=== PATIENT | female | born 1930 | race Caucasian/White ===

== ENCOUNTER 2016-06-27 08:15 | Emergency (ER) | payer MEDICARE, BC ==
[~2016-06-27] VITALS: Ht 165.1 cm; Wt 60.0 kg
[~2016-06-27 08:15] MED LIST: ALPH0.1S EACH EYE; AMLO5TAB22 PO; CENTTAB9 PO; CINN500T PO; DORZO2%O EACH EYE; DOXY100T PO; FLAX1200 PO; GLUC500C3 PO; GLUCTAB PO; LUTE20CA PO; MISC1TAB9 PO; RISP0.5T2 PO; ROSU5 PO; VALS1TAB47 PO; VITA-13 PO; VITA100017 PO; VITA400C70 PO; VITATAB11 PO
[2016-06-27] MEDS ORDERED: TETANUS/DIPHTHERIA TOXOID ADULT 0.5 ML VIAL IM ONE (08:30)
[2016-06-27 08:34] VITALS: BP 176/91; PULSE 91; RESP 18; TEMP 98.6; O2SAT 99
[2016-06-27 08:36] VITALS: O2SAT 97
[2016-06-27] MEDS ORDERED: METF500T PO (08:46)
[2016-06-27] MEDS ORDERED: ALPH0.1S EACH EYE (08:46)
[2016-06-27] MEDS ORDERED: LEVO25TA4 PO (08:46)
[2016-06-27] MEDS ORDERED: ROSU10 PO (08:46)
[2016-06-27] MEDS ORDERED: AMLO5TAB2 PO (08:46)
[2016-06-27] MEDS ORDERED: RISP0.5T2 PO (08:46)
[2016-06-27] MEDS ORDERED: VALS1TAB64 PO (08:46)
[2016-06-27] MEDS ORDERED: DORZ2SOL EACH EYE (08:46)
[2016-06-27] MEDS ORDERED: REST0.05 EACH EYE (08:46)
[2016-06-27] MEDS ORDERED: OXYB10TA PO (08:46)
--- NOTE | 2016-06-27 08:52 | PD ---
HPI Chief Complaint: Fall Time Seen by Provider: 08:25 Travel History International Travel<30 days: No Contact w/Intl Traveler<30days: No Traveled to known affect area: No History of Present Illness HPI 85-year-old female here after fall. Patient has history of dementia. Daughter is here and provides additional history. Patient typically sleeps in a recliner , got up this morning and tripped over the ottoman and did a pirouette", falling and hitting her head on the left side. No LOC. Patient denies any headache, nausea, vomiting. No neck or back pain. She has been ambulatory without any difficulty since the fall. She is not anticoagulated. Daughter noted a significant amount of blood. Daughter does not live with patient, but has cameras in her house. She was able to watch the fall and agrees with the above historical events. PFSH Past Medical History Arthritis: Yes Anxiety: No Depression: No Heart Rhythm Problems: No Cancer: No Cardiac Catheterization: No Cardiovascular Problems: No High Cholesterol: Yes Chest Pain: Yes Congestive Heart Failure: No Cerebrovascular Accident: No Diabetes: Yes Diminished Hearing: Yes (HEARING AIDS-BILAT) Endocrine: No Glaucoma: Yes Genitourinary: Yes (bladder stone) Hepatitis: No Hiatal Hernia: No Hypertension: Yes Immune Disorder: No Musculoskeletal: Yes (arthritis) Neurologic: No Psychiatric: Yes (forgetful) Reproductive: No Respiratory: No Migraines: No Seizures: No Thyroid Disease: No Tetanus Vaccination: > 5 Years ?: Not Dilation and Curettage (D&C): Yes Past Surgical History Abdominal Surgery: Yes (APPY) AICD: No Appendectomy: Yes Body Medical Devices: oral hardware due to implants Cardiac Surgery: No Coronary Artery Bypass Graft: No Ear Surgery: No Endocrine Surgery: No Eye Surgery: Yes (Detached Retina) Genitourinary Surgery: No Gynecologic Surgery: No Joint Replacement: Yes (torey PARTIAL KNEE) Oral Surgery: No Pacemaker: No Thoracic Surgery: No Tonsillectomy: Yes Social History Alcohol Use: No Tobacco Use: No Substance Use: No Allergies-Medications (Allergen,Severity, Reaction): Coded Allergies: Hydrocodone (Verified Allergy, Severe, Nausea/Vomiting, 01/15/16) Reported Meds & Prescriptions Reported Meds & Active Scripts Active Reported Alphagan P Opth Drops (Brimonidine Tartrate) 0.1% Soln 1 Drop EACH EYE Q8HR Crestor (Rosuvastatin Calcium) 10 Mg Tab 10 Mg PO DAILY Restasis Opth Drops (Cyclosporine Opth Drops) 0.05% Emul 1 Drop EACH EYE BID Dorzolamide Opth Drops (Dorzolamide HCl) 2% Soln 1 Drop EACH EYE Risperidone 0.5 Mg Tab 0.5 Mg PO BID Amlodipine (Amlodipine Besylate) 5 Mg Tab 5 Mg PO DAILY Metformin (Metformin HCl) 500 Mg Tab 500 Mg PO BIDPC With meals Oxybutynin ER 24 HR (Oxybutynin Chloride) 10 Mg Tab 10 Mg PO DAILY Valsartan 80 Mg Tab 80 Mg PO DAILY Levothyroxine (Levothyroxine Sodium) 25 Mcg Tab 25 Mcg PO DAILY Glucophage XR 24 HR (Metformin HCl) 500 Mg Tab 500 Mg PO BID Review of Systems Except as stated in HPI: all other systems reviewed are Neg Physical Exam Narrative GENERAL: Elderly female in no acute distress SKIN: Warm and dry. HEAD: Dry blood with matted hair, contusion to the left occipital parietal region. No obvious laceration, but I suspect it is there. Will require combing through her matted hair to find this. Normocephalic. EYES: Pupils equal and round. No scleral icterus. No injection or drainage. ENT: No nasal bleeding or discharge. Mucous membranes pink and moist. TMs clear bilaterally. NECK: Supple without midline tenderness to palpation. CARDIOVASCULAR: Regular rate and rhythm. RESPIRATORY: No accessory muscle use. GASTROINTESTINAL: Abdomen soft, non-tender, nondistended. MUSCULOSKELETAL: No midline tenderness to palpation of the thoracic or lumbar spine. Pelvis is stable to AP and lateral compression. Moves all extremity's normally without obvious deformity. NEUROLOGICAL: Awake and alert 3 but confused about historical questioning.. Answers questions and follows commands appropriately. No obvious cranial nerve deficits. Motor grossly within normal limits. Normal speech. PSYCHIATRIC: Appropriate mood and affect; insight and judgment normal. Data Data Last Documented VS Vital Signs Date Time Temp Pulse Resp B/P Pulse Ox O2 Delivery O2 Flow Rate FiO2 06/27/16 08:39 18 98 06/27/16 08:36 Nasal Cannula 2 06/27/16 08:34 98.6 91 176/[address] Brain W/O Iv Contrast(Rout) (06/27/16 08:30) Ecg Monitoring (06/27/16 08:30) Oximetry (06/27/16 08:30) Tetanus/Diphtheria Tox Adult (Tetanus/Di (06/27/16 08:30) MDM Medical Decision Making Medical Screen Exam Complete: Yes Emergency Medical Condition: Yes Medical Record Reviewed: Yes Differential Diagnosis 85-year-old female here with complaint of fall. Differential includes mechanical fall, closed head injury, skull fracture, ICH, scalp laceration. History is not consistent with syncope. Narrative Course Tetanus immunization was updated. CT of the brain showed negative. The dried blood on the scalp, hair was combed through revealing laceration. This was repaired by our mid-level, please see procedure note. Diagnosis Primary Impression: Scalp laceration Qualified Code: S01.01XA - Scalp laceration, initial encounter Additional Impressions: Closed head injury Qualified Code: S09.90XA - Closed head injury, initial encounter Fall Qualified Code: W19.XXXA - Fall, initial encounter Referrals: Primary Care Physician 1 week Additional Instructions: Staple removal in 7-10 days. Med/Other Pt SpecificInfo: No Change to Meds Disposition: 01 DISCHARGE HOME Condition: Stable Montserrat Bourgeois MD Jun 27, 2016 08:52
--- NOTE | 2016-06-27 08:59 | RADRPT ---
EXAM DATE/TIME: 06/27/2016 08:47 [facility] COMPARISON: CT BRAIN W/O CONTRAST, January 01, 2014, 15:54. INDICATIONS : Patient fell and hit left posterior head RADIATION DOSE: 33.76 CTDIvol (mGy) MEDICAL HISTORY : Hypertension. Diabetes mellitus type 1. SURGICAL HISTORY : None. ENCOUNTER: Initial ACUITY: 1 day PAIN SCALE: 0/10 LOCATION: Left occipital TECHNIQUE: Multiple contiguous axial images were obtained of the head. Using automated exposure control and adj ustment of the mA and/or kV according to patient size, radiation dose was kept as low as reasonably a chievable to obtain optimal diagnostic quality images. FINDINGS: There is diffuse atrophy and reidentified is a remote left thalamic lacunar infarct. Patchy white mat ter disease is again seen in the periventricular white matter. No signs of acute infarct, hemorrhage or mass. There are no fractures. CONCLUSION: No significant change has occurred. Jignesh Lam MD on June 27, 2016 at 8:57 Board Certified Radiologist. This report was verified electronically.
--- NOTE | 2016-06-27 09:58 | PD ---
Physical Exam Time Seen by Provider: 09:25 Narrative I was asked by Dr. Bourgeois to repair a laceration on this patient, please see her note for further details. Data Data Last Documented VS Vital Signs Date Time Temp Pulse Resp B/P Pulse Ox O2 Delivery O2 Flow Rate FiO2 06/27/16 08:39 18 98 06/27/16 08:36 Nasal Cannula 2 06/27/16 08:34 98.6 91 176/[address] Brain W/O Iv Contrast(Rout) (06/27/16 08:30) Ecg Monitoring (06/27/16 08:30) Oximetry (06/27/16 08:30) Tetanus/Diphtheria Tox Adult (Tetanus/Di (06/27/16 08:30) MDM Medical Record Reviewed: Yes Supervised Visit with GARIMA: Yes Procedures Procedure Narrative LACERATION LOCATION: Top of scalp LENGTH: 2 cm NUMBER OF STITCHES/JOSSIE: 2 jossie REPAIR: The area of the laceration was prepped with Betadine and sterilely draped. The wound was copiously irrigated and explored without evidence of foreign body, tendon injury or neurovascular injury. The wound was closed using staple gun. This was a single layer repair. A sterile dressing was applied. The patient was advised to keep the dressing clean and dry. Patient tolerated the procedure well. Diagnosis Primary Impression: Scalp laceration Qualified Code: S01.01XA - Scalp laceration, initial encounter Additional Impressions: Closed head injury Qualified Code: S09.90XA - Closed head injury, initial encounter Fall Qualified Code: W19.XXXA - Fall, initial encounter Referrals: Primary Care Physician 1 week Additional Instruction: Staple removal in 7-10 days. Disposition: 01 DISCHARGE HOME Condition: Stable Vane Chu Jun 27, 2016 09:58
== END 2016-06-27 10:30 | disposition home or self-care (01) ==
LOC: NEPC 08:15
DX: S01.01XA Laceration without foreign body of scalp, initial encounter (principal); W01.0XXA Fall on same level from slipping, tripping and stumbling without subsequent striking against object, initial encounter; Z23 Encounter for immunization
CPT/HCPCS: 12001; 70450; 90471; 90714

== ENCOUNTER 2017-01-26 16:14 | Observation (INO) | payer MEDICARE, BC ==
[~2017-01-26] VITALS: Ht 167.6 cm; Wt 80.0 kg
[~2017-01-26 16:14] MED LIST changes: +AMLO5TAB2 PO; -AMLO5TAB22 PO; -CENTTAB9 PO; -CINN500T PO; +DORZ2SOL EACH EYE; -DORZO2%O EACH EYE; -DOXY100T PO; -FLAX1200 PO; -GLUC500C3 PO; +LEVO25TA4 PO; -LUTE20CA PO; +METF500T PO; -MISC1TAB9 PO; +OXYB10TA PO; +REST0.05 EACH EYE; +ROSU10 PO; -ROSU5 PO; -VALS1TAB47 PO; +VALS1TAB64 PO; -VITA-13 PO; -VITA100017 PO; -VITA400C70 PO; -VITATAB11 PO
--- NOTE | 2017-01-26 16:27 | PD ---
HPI Chief Complaint: right-sided weakness Time Seen by Provider: 16:26 Travel History International Travel<30 days: No Contact w/Intl Traveler<30days: No Traveled to known affect area: No History of Present Illness HPI 86-year-old female was brought to the emergency room by EMS for progressive right-sided weakness for 2-3 days. Her daughter is here with her who confirmed that story. She has been having difficulty walking or holding objects. Patient is otherwise awake and in no obvious distress. Vital signs were relatively stable. No past history of stroke. No history of fall. Patient's lower extremity is weaker than the upper extremity. PFSH Past Medical History Narrative Medical List of her past medical, surgical, social and family history was reviewed from the nursing note. Arthritis: Yes Anxiety: No Depression: No Heart Rhythm Problems: No Cancer: No Cardiac Catheterization: No Cardiovascular Problems: No High Cholesterol: Yes Chest Pain: Yes Congestive Heart Failure: No Cerebrovascular Accident: No Diabetes: Yes Diminished Hearing: Yes (HEARING AIDS-BILAT) Endocrine: No Glaucoma: Yes Genitourinary: Yes (bladder stone) Hepatitis: No Hiatal Hernia: No Hypertension: Yes Immune Disorder: No Musculoskeletal: Yes (arthritis) Neurologic: No Psychiatric: Yes (forgetful) Reproductive: No Respiratory: No Migraines: No Seizures: No Thyroid Disease: No Dilation and Curettage (D&C): Yes Past Surgical History Abdominal Surgery: Yes (APPY) AICD: No Appendectomy: Yes Body Medical Devices: oral hardware due to implants Cardiac Surgery: No Coronary Artery Bypass Graft: No Ear Surgery: No Endocrine Surgery: No Eye Surgery: Yes (Detached Retina) Genitourinary Surgery: No Gynecologic Surgery: No Joint Replacement: Yes (torey PARTIAL KNEE) Oral Surgery: No Pacemaker: No Thoracic Surgery: No Tonsillectomy: Yes Social History Alcohol Use: No Tobacco Use: No Substance Use: No Allergies-Medications (Allergen,Severity, Reaction): Coded Allergies: Hydrocodone (Verified Allergy, Severe, Nausea/Vomiting, 01/26/17) Comments List of her allergies reviewed from the nursing note. Reported Meds & Prescriptions Reported Meds & Active Scripts Active Reported Methenamine Hippurate 1 Gm Tab 500 Mg PO BID Alphagan P Opth Drops (Brimonidine Tartrate) 0.1% Soln 1 Drop EACH EYE Q8HR Crestor (Rosuvastatin Calcium) 10 Mg Tab 10 Mg PO DAILY Restasis Opth 0.05% (Cyclosporine Opth 0.05%) 0.05% Emul 1 Drop EACH EYE BID Dorzolamide Opth Drops (Dorzolamide HCl) 2% Soln 1 Drop EACH EYE Risperidone 0.5 Mg Tab 0.5 Mg PO BID Amlodipine (Amlodipine Besylate) 5 Mg Tab 5 Mg PO DAILY Metformin (Metformin HCl) 500 Mg Tab 500 Mg PO BIDPC With meals Oxybutynin ER 24 HR (Oxybutynin Chloride) 10 Mg Tab 10 Mg PO DAILY Valsartan 80 Mg Tab 80 Mg PO DAILY Levothyroxine (Levothyroxine Sodium) 25 Mcg Tab 25 Mcg PO DAILY Narrative Medication List of her home medications reviewed from the nursing note. Review of Systems Except as stated in HPI: all other systems reviewed are Neg Physical Exam Narrative GENERAL: Awake, alert, elderly, frail SKIN: Focused skin assessment warm/dry. HEAD: Atraumatic. Normocephalic. EYES: Pupils equal and round. No scleral icterus. No injection or drainage. ENT: No nasal bleeding or discharge. Mucous membranes pink and moist. NECK: Trachea midline. No JVD. CARDIOVASCULAR: Regular rate and rhythm. No murmur appreciated. RESPIRATORY: No accessory muscle use. Clear to auscultation. Breath sounds equal bilaterally. GASTROINTESTINAL: Abdomen soft, non-tender, nondistended. Hepatic and splenic margins not palpable. MUSCULOSKELETAL: No obvious deformities. No clubbing. No cyanosis. No edema. NEUROLOGICAL: Awake and alert. Significantly diminished right upper and lower extremity strength. Right upper is 3 out of 5 and right lower a is 2 out of 5. Ataxia of the right upper extremity. PSYCHIATRIC: Appropriate mood and affect; insight and judgment normal. Data Data Last Documented VS Vital Signs Date Time Temp Pulse Resp B/P Pulse Ox O2 Delivery O2 Flow Rate FiO2 01/26/17 20:36 89 18 159/73 97 Nasal Cannula 2 01/26/17 16:30 98.8 Orders Electrocardiogram (01/26/17 16:51) Prothrombin Time / Inr (Pt) (01/26/17 16:51) Complete Blood Count With Diff (01/26/17 16:51) Basic Metabolic Panel (Bmp) (01/26/17 16:51) Troponin I (01/26/17 16:51) Urinalysis - C+S If Indicated (01/26/17 16:51) Ct Brain W/O Iv Contrast(Rout) (01/26/17 16:51) Chest, Single Ap (01/26/17 16:51) Ecg Monitoring (01/26/17 16:51) Iv Access Insert/Monitor (01/26/17 16:51) Oximetry (01/26/17 16:51) Sodium Chloride 0.9% Flush (Ns Flush) (01/26/17 17:00) Urine Culture (01/26/17 19:25) Admit Order (Ed Use Only) (01/26/17 21:17) Labs Laboratory Tests Test 01/26/17 01/26/17 18:00 19:25 Prothrombin Time 11.4 SEC Prothromb Time International 1.0 RATIO Ratio Sodium Level 138 MEQ/L Potassium Level 4.1 MEQ/L Chloride Level 105 MEQ/L Carbon Dioxide Level 19.3 MEQ/L Anion Gap 14 MEQ/L Blood Urea Nitrogen 34 MG/DL Creatinine 1.05 MG/DL Estimat Glomerular Filtration 49 ML/MIN Rate Random Glucose 187 MG/DL Calcium Level 10.6 MG/DL Troponin I LESS THAN 0.02 NG/ML White Blood Count 11.9 TH/MM3 Red Blood Count 5.01 MIL/MM3 Hemoglobin 15.2 GM/DL Hematocrit 44.5 % Mean Corpuscular Volume 88.9 FL Mean Corpuscular Hemoglobin 30.3 PG Mean Corpuscular Hemoglobin 34.1 % Concent Red Cell Distribution Width 14.2 % Platelet Count 171 TH/MM3 Mean Platelet Volume 9.3 FL Neutrophils (%) (Auto) 59.8 % Lymphocytes (%) (Auto) 29.3 % Monocytes (%) (Auto) 8.6 % Eosinophils (%) (Auto) 1.4 % Basophils (%) (Auto) 0.9 % Neutrophils # (Auto) 7.1 TH/MM3 Lymphocytes # (Auto) 3.5 TH/MM3 Monocytes # (Auto) 1.0 TH/MM3 Eosinophils # (Auto) 0.2 TH/MM3 Basophils # (Auto) 0.1 TH/MM3 CBC Comment DIFF FINAL Differential Comment Urine Color YELLOW Urine Turbidity CLEAR Urine pH 5.0 Urine Specific [place] 1.019 Urine Protein 30 mg/dL Urine Glucose (UA) NEG mg/dL Urine Ketones NEG mg/dL Urine Occult Blood NEG Urine Nitrite NEG Urine Bilirubin NEG Urine Urobilinogen LESS THAN 2.0 MG/DL Urine Leukocyte Esterase NEG Urine RBC LESS THAN 1 /hpf Urine WBC 5 /hpf Urine Squamous Epithelial 1 /hpf Cells Microscopic Urinalysis Comment CATH-CULTURE IND MDM Medical Decision Making Medical Screen Exam Complete: Yes Emergency Medical Condition: Yes Medical Record Reviewed: Yes Interpretation(s) Twelve-lead EKG was reviewed by me. Normal sinus rhythm, left axis deviation, old anterior and inferior CT. LVH by voltage criteria. Heart rate of 87 bpm Differential Diagnosis CVA, intracranial mass, intracranial bleed Narrative Course 7:05 PM blood test results of back. Patient has some dehydration. CT of the head was looked at by me and I did not see any obvious head bleed. Awaiting for the read. Patient needs to be admitted for this new weakness. Awaiting for the hospitalist to call back. Procedures EKG Prior to Arrival: No Diagnosis Primary Impression: Right hemiparesis Additional Impression: CVA (cerebral vascular accident) Qualified Code: I63.9 - Cerebrovascular accident (CVA), unspecified mechanism Admitting Information Admitting Physician Requests: Admit Scripts Aspirin (Aspirin Low Strength)81 Mg [id number] Mg PO DAILY #30 EA Prov:Molly Iglesias 01/28/17 Gemma Dueñas MD Jan 26, 2017 16:26
[2017-01-26 16:30] VITALS: BP 171/77; PULSE 83; RESP 17; TEMP 98.8; O2SAT 99
[2017-01-26] MEDS ORDERED: METH1TAB2 PO (16:41)
[2017-01-26] MEDS ORDERED: SODIUM CHLORIDE 0.9% FLUSH 10 ML FLUSH IVF PRN (17:00)
--- NOTE | 2017-01-26 17:36 | RADRPT ---
EXAM DATE/TIME: 01/26/2017 17:04 [facility] COMPARISON: CHEST SINGLE AP, September 24, 2015, 12:08. INDICATIONS : Patient is short of breath. MEDICAL HISTORY : Hypertension. Diabetes mellitus type 1. SURGICAL HISTORY : None. ENCOUNTER: Initial ACUITY: 1 day PAIN SCORE: 0/10 LOCATION: Bilateral chest FINDINGS: A single view of the chest demonstrates the lungs to be symmetrically aerated without evidence of mas s, infiltrate or effusion. A small granuloma within the left midlung. The cardiomediastinal contours are unremarkable. Osseous structures are intact. CONCLUSION: No acute disease. Oscar Knutson Jr., MD on January 26, 2017 at 17:34 Board Certified Radiologist. This report was verified electronically.
[2017-01-26 18:19] LABS: AUTOMATED NEUTROPHIL # 7.1 TH/MM3 (1.8-7.7); BASOPHIL # 0.1 TH/MM3 (0-0.2); BASOPHIL % 0.9 % (0.0-2.0); EOSINOPHIL # 0.2 TH/MM3 (0-0.4); EOSINOPHIL % 1.4 % (0.0-4.0); HEMATOCRIT 44.5 % (35.0-46.0); HEMO FLAGS DIFF FINAL; LYMPH % 29.3 % (9.0-44.0); LYMPHOCYTE # 3.5 TH/MM3 (1.0-4.8); MEAN CELL VOLUME 88.9 FL (80.0-100.0); MEAN CORPUSCULAR HEMOGLOBIN 30.3 PG (27.0-34.0); MEAN CORPUSCULAR HGB CONC 34.1 % (32.0-36.0); MONO % 8.6 % (0.0-8.0); NEUT % 59.8 % (16.0-70.0); PLATELET COUNT 171 TH/MM3 (150-450); RED BLOOD COUNT 5.01 MIL/MM3 (4.00-5.30); RED CELL DISTRIBUTION WIDTH 14.2 % (11.6-17.2); WHITE BLOOD COUNT 11.9 TH/MM3 (4.0-11.0)
[2017-01-26 18:32] VITALS: BP 173/74; PULSE 81; RESP 19; O2SAT 99
[2017-01-26 18:37] LABS: ANION GAP 14 MEQ/L (5-15); BICARBONATE 19.3 MEQ/L (21.0-32.0); BLOOD UREA NITROGEN 34 MG/DL (7-18); CHLORIDE 105 MEQ/L (98-107); GLOMERULAR FILTRATION RATE 49 ML/MIN (>89); POTASSIUM 4.1 MEQ/L (3.5-5.1); PROTHROMBIN TIME - PATIENT 11.4 SEC (9.8-11.6); SODIUM (NA) 138 MEQ/L (136-145)
--- NOTE | 2017-01-26 19:39 | RADRPT ---
EXAM DATE/TIME: 01/26/2017 18:40 [facility] COMPARISON: CT BRAIN W/O CONTRAST, June 27, 2016, 8:47. INDICATIONS : Weakness on right side for three days RADIATION DOSE: 32.37 CTDIvol (mGy) MEDICAL HISTORY : Hypertension. Bladder stone SURGICAL HISTORY : Appendectomy. Lumbar drain ENCOUNTER: Initial ACUITY: 3 days PAIN SCALE: 0/10 LOCATION: cranial TECHNIQUE: Multiple contiguous axial images were obtained of the head. Using automated exposure control and adj ustment of the mA and/or kV according to patient size, radiation dose was kept as low as reasonably a chievable to obtain optimal diagnostic quality images. DICOM format image data is available electro nically for review and comparison. FINDINGS: CEREBRUM: The ventricles and sulci are prominent, characteristic of central and cortical atrophy; the overall s everity is very similar to June 2016. Lacunar infarcts in the medial left thalamus and posterior limb of the left internal capsule are stable from prior. Diffuse hypoattenuation in the supratentori al white matter is also stable.. No evidence of midline shift, mass lesion, hemorrhage or acute infa rction. No extra-axial fluid collections are seen. POSTERIOR FOSSA: The cerebellum and brainstem are intact. The 4th ventricle is midline. The cerebellopontine angle i s unremarkable. EXTRACRANIAL: The visualized portion of the orbits is intact. SKULL: The calvaria is intact. No evidence of skull fracture. 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 No acute findings. Oscar Baptiste MD on January 26, 2017 at 19:36 Board Certified Radiologist. This report was verified electronically.
[2017-01-26 20:14] LABS: BLOOD, URINE NEG (NEG); GLUCOSE,URINE NEG (NEG); KETONE, URINE NEG (NEG); NITRITE,URINE NEG (NEG); SQUAMOUS EPITHELIAL CELL URINE 1 /hpf (0-5); URINE COLOR YELLOW (YELLW/STRAW)
[2017-01-26 20:16] LABS: COMMENT (UR) CATH-CULTURE IND; CULTURE IF INDICATED CATH CULTURE IND
[2017-01-26 20:36] VITALS: BP 159/73; PULSE 89; RESP 18; O2SAT 97
--- NOTE | 2017-01-26 21:20 | PD ---
Data Data Last Documented VS Vital Signs Date Time Temp Pulse Resp B/P Pulse Ox O2 Delivery O2 Flow Rate FiO2 01/26/17 20:36 89 18 159/73 97 Nasal Cannula 2 01/26/17 16:30 98.8 Orders Electrocardiogram (01/26/17 16:51) Prothrombin Time / Inr (Pt) (01/26/17 16:51) Complete Blood Count With Diff (01/26/17 16:51) Basic Metabolic Panel (Bmp) (01/26/17 16:51) Troponin I (01/26/17 16:51) Urinalysis - C+S If Indicated (01/26/17 16:51) Ct Brain W/O Iv Contrast(Rout) (01/26/17 16:51) Chest, Single Ap (01/26/17 16:51) Ecg Monitoring (01/26/17 16:51) Iv Access Insert/Monitor (01/26/17 16:51) Oximetry (01/26/17 16:51) Sodium Chloride 0.9% Flush (Ns Flush) (01/26/17 17:00) Urine Culture (01/26/17 19:25) Admit Order (Ed Use Only) (01/26/17 21:17) Labs Laboratory Tests Test 01/26/17 01/26/17 18:00 19:25 White Blood Count 11.9 TH/MM3 Red Blood Count 5.01 MIL/MM3 Hemoglobin 15.2 GM/DL Hematocrit 44.5 % Mean Corpuscular Volume 88.9 FL Mean Corpuscular Hemoglobin 30.3 PG Mean Corpuscular Hemoglobin 34.1 % Concent Red Cell Distribution Width 14.2 % Platelet Count 171 TH/MM3 Mean Platelet Volume 9.3 FL Neutrophils (%) (Auto) 59.8 % Lymphocytes (%) (Auto) 29.3 % Monocytes (%) (Auto) 8.6 % Eosinophils (%) (Auto) 1.4 % Basophils (%) (Auto) 0.9 % Neutrophils # (Auto) 7.1 TH/MM3 Lymphocytes # (Auto) 3.5 TH/MM3 Monocytes # (Auto) 1.0 TH/MM3 Eosinophils # (Auto) 0.2 TH/MM3 Basophils # (Auto) 0.1 TH/MM3 CBC Comment DIFF FINAL Differential Comment Prothrombin Time 11.4 SEC Prothromb Time International 1.0 RATIO Ratio Sodium Level 138 MEQ/L Potassium Level 4.1 MEQ/L Chloride Level 105 MEQ/L Carbon Dioxide Level 19.3 MEQ/L Anion Gap 14 MEQ/L Blood Urea Nitrogen 34 MG/DL Creatinine 1.05 MG/DL Estimat Glomerular Filtration 49 ML/MIN Rate Random Glucose 187 MG/DL Calcium Level 10.6 MG/DL Troponin I LESS THAN 0.02 NG/ML Urine Color YELLOW Urine Turbidity CLEAR Urine pH 5.0 Urine Specific [place] 1.019 Urine Protein 30 mg/dL Urine Glucose (UA) NEG mg/dL Urine Ketones NEG mg/dL Urine Occult Blood NEG Urine Nitrite NEG Urine Bilirubin NEG Urine Urobilinogen LESS THAN 2.0 MG/DL Urine Leukocyte Esterase NEG Urine RBC LESS THAN 1 /hpf Urine WBC 5 /hpf Urine Squamous Epithelial 1 /hpf Cells Microscopic Urinalysis Comment CATH-CULTURE IND MDM Medical Record Reviewed: Yes Supervised Visit with GARIMA: No Narrative Course CBC & BMP Diagram 01/26/17 18:00 Troponin is less than 0.[address] 01/26/171650 Signed Impressions: Service Date/Time: Thursday, January 26, 2017 18:40 - CONCLUSION: Moderate severity ischemic atrophy and old lacunar infarcts in the left side. No acute findings. Oscar Baptiste MD Chest X-Ray 01/26/171650 Signed Impressions: Service Date/Time: Thursday, January 26, 2017 17:04 - CONCLUSION: No acute disease. Oscar Knutson Jr., MD Please refer to the outgoing provider's note The patient has right sided hemiparesis. Mild hypoxia observed in ER with O2 sats in low 90s on 2L NC. Pt denies subjective dyspnea. No CP. Case d/w Shaquille Ann for [facility]. Diagnosis Primary Impression: Right hemiparesis Additional Impression: CVA (cerebral vascular accident) Qualified Code: I63.9 - Cerebrovascular accident (CVA), unspecified mechanism Admitting Information Admitting Physician Requests: Admit Cecil Nevarez MD Jan 26, 2017 21:20
[2017-01-26] MEDS ORDERED: SODIUM CHLORID 0.9% 500 ML INJ 500 ML IV ONE (21:30)
[2017-01-26] MEDS ORDERED: ENALAPRILAT 1.25 MG/ML VIAL IV PRN (21:45)
[2017-01-26] MEDS ORDERED: ONDANSETRON HCL 4 MG/2 ML VIAL IVP PRN (21:45)
[2017-01-26] MEDS ORDERED: SENNOSIDES 8.6 MG TAB PO PRN (21:45)
[2017-01-26] MEDS ORDERED: ACETAMINOPHEN 325 MG TAB PO PRN (21:45)
[2017-01-26] MEDS ORDERED: NALOXONE HCL 0.4 MG/ML AMP IV PRN (21:45)
[2017-01-26] MEDS ORDERED: ASPIRIN EC 325 MG TABEC PO ONE (21:45)
[2017-01-26] MEDS: ENOXAPARIN SODIUM 40 MG/0.4 ML SYRINGE SQ SCH (22:39)
[2017-01-26 23:05] VITALS: BP 148/76
[2017-01-26] MEDS: SODIUM CHLOR 0.9% 1000 ML INJ 1,000 ML IV SCH (23:30)
[2017-01-26 23:56] VITALS: BP 180/74; PULSE 78; RESP 18; TEMP 98.4; O2SAT 95
[2017-01-27] VITALS (10 sets, daily range): BP systolic 144–176; BP diastolic 63–93; PULSE 66–88; RESP 16–18; TEMP 98.3–98.7; O2SAT 93–97
--- NOTE | 2017-01-27 00:24 | RADRPT ---
EXAM DATE/TIME: 01/26/2017 22:04 [facility] COMPARISON: No previous studies available for comparison. INDICATIONS : CVA. Right-sided weakness for 3 days. MEDICAL HISTORY : Hypertension. Hypercholesterolemia. Arthritis. Glaucoma. Diabetes. Osteoporosis. SURGICAL HISTORY : Total knee replacement, left. Total knee replacement, right. Appendectomy. D and C.. Detached retina. Tonsillectomy. ENCOUNTER: Initial ACUITY: 2 days PAIN SCORE: 0/10 LOCATION: Bilateral neck PEAK SYSTOLIC VELOCITIES (cm/sec): ICA/CCA RATIO: Right: 0.7 Left: 0.8 ICA: Right: 64 Left: 75 CCA: Right: 89 Left: 76 ECA: Right: 121 Left: 169 VERTEBRAL: Right: 24 retrograde Left: 72 antegrade Elevated flow velocities and ICA/CCA ratios have been found to correlate with increased degrees of vessel stenosis, calculated as percentage of diameter relative to a normal segment of distal ICA/CCA FINDINGS: RIGHT CAROTID: Moderate plaque is present in the right carotid bulb with areas of shadowing. There is retrograde henrique w in the right proximal, mid and distal internal carotid artery. There was a small amount of flow wit h normal velocities and waveforms. LEFT CAROTID: Moderate plaque is present in the carotid bulb with areas of shadowing. The waveforms are within norm al limits. VERTEBRAL ARTERIES: Retrograde flow is present in the right vertebral artery. There is antegrade flow in the left vertebr al artery. MISCELLANEOUS: None. CONCLUSION: 1. Moderate plaque in the right carotid bulb with retrograde flow in the right internal carotid arter y. There is normal flow in the common carotid artery with no evidence of occlusion. This is an unusua l finding without occlusion in the common carotid artery. 2. Retrograde flow is also noted in the right vertebral artery. 3. Moderate plaque in the left internal carotid artery with less than 50% diameter stenosis by veloci ty criteria. 4. Further evaluation with CT angiography is recommended. Bernard Hardy MD on January 27, 2017 at 0:18 Board Certified Radiologist. This report was verified electronically.
[2017-01-27 07:31] LABS: BASOPHIL # 0.1 TH/MM3 (0-0.2); BASOPHIL % 1.2 % (0.0-2.0); EOSINOPHIL # 0.2 TH/MM3 (0-0.4); EOSINOPHIL % 2.6 % (0.0-4.0); HEMATOCRIT 42.6 % (35.0-46.0); HEMO FLAGS DIFF FINAL; LYMPH % 33.2 % (9.0-44.0); LYMPHOCYTE # 3.1 TH/MM3 (1.0-4.8); MEAN CELL VOLUME 88.3 FL (80.0-100.0); MEAN CORPUSCULAR HEMOGLOBIN 30.2 PG (27.0-34.0); MEAN CORPUSCULAR HGB CONC 34.2 % (32.0-36.0); MONO % 9.1 % (0.0-8.0); NEUT % 53.9 % (16.0-70.0); PLATELET COUNT 162 TH/MM3 (150-450); RED BLOOD COUNT 4.82 MIL/MM3 (4.00-5.30); RED CELL DISTRIBUTION WIDTH 13.9 % (11.6-17.2); WHITE BLOOD COUNT 9.3 TH/MM3 (4.0-11.0)
[2017-01-27] MEDS: SODIUM CHLOR 0.9% 1000 ML INJ 1,000 ML IV SCH (07:32)
[2017-01-27 08:26] LABS: BICARBONATE 21.7 MEQ/L (21.0-32.0); HDL CHOLESTEROL 41.3 MG/DL (40.0-60.0); POTASSIUM 3.8 MEQ/L (3.5-5.1)
[2017-01-27] MEDS: ASPIRIN 81 MG CHEW TAB PO SCH (08:28)
[2017-01-27] MEDS: FAMOTIDINE 20 MG TAB PO SCH ×2 (08:28→21:11)
[2017-01-27] MEDS ORDERED: GLUCAGON 1 MG/ML VIAL OTHER PRN (09:00)
[2017-01-27] MEDS ORDERED: DEXTROSE 50% IN WATER 50 ML VIAL(D50) IV PRN (09:00)
--- NOTE | 2017-01-27 09:00 | RADRPT ---
EXAM DATE/TIME: 01/27/2017 07:47 [facility] COMPARISON: MRI BRAIN W & W/O CONTRAST, October 13, 2015, 19:27. INDICATIONS : Right sided weakness. CVA. MEDICAL HISTORY : Hypertension. Diabetes mellitus type 2. SURGICAL HISTORY : Total knee replacement, left. Total knee replacement, right. ENCOUNTER: Subsequent ACUITY: 4-6 days PAIN SCORE: 0/10 LOCATION: head. TECHNIQUE: Multiplanar, multisequence MRI of the brain was performed without contrast. FINDINGS: There is a subcentimeter acute to subacute lacunar infarct in the left basal ganglia region predomina ntly in the posterior limb left internal capsule. No other areas of acute infarction are identified. Again seen are moderate changes of chronic ischemic demyelinization in the periventricular white nate er similar to September 2015. No mass effect or midline shift. There is cortical atrophy with some ventri cular prominence that is stable. No hemorrhage identified. No abnormal extra-axial fluid collections. CONCLUSION: 1. Subcentimeter acute to subacute infarct in the posterior limb left internal capsule. No other acut e infarctions. 2. Stable chronic moderate ischemic changes in the periventricular white matter. Anthony Suresh MD on January 27, 2017 at 8:54 Board Certified Radiologist. This report was verified electronically.
--- NOTE | 2017-01-27 09:07 | HHI.HP ---
HPI Service [facility] Primary Care Physician Non-Staff Admission Diagnosis CVA Diagnoses: Chief Complaint: Right-sided weakness (Molly Iglesias) Travel History International Travel<30 Days: No Contact w/Intl Traveler <30 Da: No Traveled to Known Affected Are: No (Molly Iglesias) History of Present Illness This a pleasant 86-year-old elderly white female with history of NPH and prior lumbar drain, memory deficits, urinary incontinence, hypertension, hyperlipidemia, type 2 diabetes. Patient presented to the emergency room via EMS for reported right-sided weakness for the last 2-3 days. Patient is a poor historian, she has a general idea why she is here but cannot provide detail medical information. Believes symptoms have been ongoing for a few months. Daughter is not at bedside. Per review of the record, patient has been noted having difficulty walking and holding objects. Patient indicates that she has to hold onto things to ambulate. She was last seen at this facility in 2016 when she was admitted after having a lumbar drain placed for NPH. At that time she was noted to have gait difficulty and memory problems. Patient denies any headaches, no double vision. Does complain of mild paresthesias to the right upper and lower extremity. She she is forgetful, somewhat slow to respond and requires frequent cues to complete tasks. She has no other complaints, no chest pain, no shortness of breath. She does have chronic urinary incontinence. Denies any recent fever, no chills. In the emergency room, patient was evaluated, laboratory workup was completed. She was noted with some degree of dehydration, BUN of 34, creatinine 1.05. Carbon dioxide 19.3. Calcium 10.6, it is down to 9.2 today. Random glucose 187. Mild leukocytosis, WBC 11.9. Urine culture is pending. CT of the head showed moderate severity ischemic atrophy and old lacunar infarcts in the left side, no acute findings. Patient had previous imaging studies in 2016 that did not reveal any strokes. Patient was not aware and did not have any prior history. Patient was given aspirin. Patient is admitted for further evaluation and treatment. (Molly Iglesias) Review of Systems Genitourinary: COMPLAINS OF: Urinary incontinence Neurologic: COMPLAINS OF: Abnormal gait, Localized weakness, Poor Balance ( Molly Iglesias) Past Family Social History Past Medical History Diabetes Mellitus Hyperlipidemia Hypertension Gait and memory problems Urinary incontinence, follows up with urologist NPH Past Surgical History NPH, s/p placement of lumbar drain 10/13/15 two partial knee surgery Tonsillectomy Cholecystectomy Appendectomy Reported Medications Reported Meds & Active Scripts Active Reported Methenamine Hippurate 1 Gm Tab 500 Mg PO BID Alphagan P Opth Drops (Brimonidine Tartrate) 0.1% Soln 1 Drop EACH EYE Q8HR Crestor (Rosuvastatin Calcium) 10 Mg Tab 10 Mg PO DAILY Restasis Opth 0.05% (Cyclosporine Opth 0.05%) 0.05% Emul 1 Drop EACH EYE BID Dorzolamide Opth Drops (Dorzolamide HCl) 2% Soln 1 Drop EACH EYE Risperidone 0.5 Mg Tab 0.5 Mg PO BID Amlodipine (Amlodipine Besylate) 5 Mg Tab 5 Mg PO DAILY Metformin (Metformin HCl) 500 Mg Tab 500 Mg PO BIDPC With meals Oxybutynin ER 24 HR (Oxybutynin Chloride) 10 Mg Tab 10 Mg PO DAILY Valsartan 80 Mg Tab 80 Mg PO DAILY Levothyroxine (Levothyroxine Sodium) 25 Mcg Tab 25 Mcg PO DAILY (Molly Iglesias) Allergies: Coded Allergies: Hydrocodone (Verified Allergy, Severe, Nausea/Vomiting, 01/26/17) Active Ordered Medications Inpatient Medications Acetaminophen (Tylenol) 650 mg Q4H PRN PO TEMP > 100.4; Start 01/26/17 at 21:45 Aspirin (Aspirin Chew) 162 mg DAILY PO Last administered on 01/27/17 08:28; Start 01/27/17 at 09:00 Aspirin (Ecotrin Ec) 325 mg ONCE ONCE PO Last administered on 01/26/17 23:18; Start 01/26/17 at 21:45; Stop 01/26/17 at 21:46; Status DC Enalaprilat (Vasotec Inj) 1.25 mg Q4H PRN IV For SBP > 220 or DBP > 120; Start 01/26/17 at 21:45 Enoxaparin Sodium (Lovenox Inj) 40 mg Q24H SQ Last administered on 01/26/17 22: 39; Start 01/26/17 at 21:45 Famotidine (Pepcid) 20 mg BID PO Last administered on 01/27/17 08:28; Start 01/27/17 at 09:00 Naloxone HCl (Narcan Inj) 0.4 mg UNSCH PRN IV SEE LABEL COMMENTS; Start at 21:45 Ondansetron HCl (Zofran Inj) 4 mg Q6H PRN IVP NAUSEA OR VOMITING; Start at 21:45 Sennosides (Senokot) 17.2 mg Q12H PRN PO MODERATE - SEVERE CONSTIPATION; Start 01/26/17 at 21:45 Sodium Chloride (NS 1000 ml Inj) 1,000 ml @ 100 mls/hr Q10H IV Last administered on 01/27/17 07:32; Start 01/26/17 at 21:32 Sodium Chloride 2 ml 2 ml UNSCH PRN IVF FLUSH AFTER USING IV ACCESS; Start 01/26 at 17:00 Family History Reviewed, noncontributory Social History Patient is a , lives by herself. She has 2 sons and 1 daughter. Her daughterChrissie visits her every day. No alcohol abuse, no substance abuse, no illegal drug use. Does not use any assistive devices (Molly Iglesias) Physical Exam Vital Signs Vital Signs Date Time Temp Pulse Resp B/P Pulse Ox O2 Delivery O2 Flow Rate FiO2 01/27/17 05:35 98.7 71 18 144/63 94 01/27/17 04:01 66 01/27/17 00:00 84 01/26/17 23:56 98.4 78 18 180/74 95 01/26/17 23:05 148/76 01/26/17 20:36 89 18 159/73 97 Nasal Cannula 2 01/26/17 18:32 81 19 173/74 99 Room Air 01/26/17 18:32 99 Room Air 01/26/17 16:32 Room Air 01/26/17 16:30 98.8 83 17 171/77 99 Physical Exam GENERAL: This is a well-nourished, well-developed patient, in no apparent distress. SKIN: No rashes, ecchymoses or lesions. Cool and dry. HEAD: Atraumatic. Normocephalic. No temporal or scalp tenderness. EYES: Pupils equal round and reactive. Extraocular motions intact. No scleral icterus. No injection or drainage. ENT: Nose without bleeding, purulent drainage or septal hematoma. Throat without erythema, tonsillar hypertrophy or exudate. Uvula midline. Airway patent. NECK: Trachea midline. No JVD or lymphadenopathy. Supple, nontender, no meningeal signs. CARDIOVASCULAR: Regular rate and rhythm without murmurs, gallops, or rubs. RESPIRATORY: Clear to auscultation. Breath sounds equal bilaterally. No wheezes , rales, or rhonchi. GASTROINTESTINAL: Abdomen soft, non-tender, nondistended. No hepato-splenomegaly , or palpable masses. No guarding. MUSCULOSKELETAL: Extremities without clubbing, cyanosis, or edema. No joint tenderness, effusion, or edema noted. No calf tenderness. Negative Homans sign bilaterally. NEUROLOGICAL: Awake, alert oriented to self and place. Not sure of the year. Follows simple commands. Slow to respond. Ataxia noted left upper extremity greater than right. Right leg distal weakness, 4 out of 5. Speech clear. Laboratory Laboratory Tests Test 01/26/17 01/26/17 01/27/17 18:00 19:25 06:35 White Blood Count 11.9 9.3 Red Blood Count 5.01 4.82 Hemoglobin 15.2 14.6 Hematocrit 44.5 42.6 Mean Corpuscular Volume 88.9 88.3 Mean Corpuscular Hemoglobin 30.3 30.2 Mean Corpuscular Hemoglobin 34.1 34.2 Concent Red Cell Distribution Width 14.2 13.9 Platelet Count 171 162 Mean Platelet Volume 9.3 8.4 Neutrophils (%) (Auto) 59.8 53.9 Lymphocytes (%) (Auto) 29.3 33.2 Monocytes (%) (Auto) 8.6 9.1 Eosinophils (%) (Auto) 1.4 2.6 Basophils (%) (Auto) 0.9 1.2 Neutrophils # (Auto) 7.1 5.0 Lymphocytes # (Auto) 3.5 3.1 Monocytes # (Auto) 1.0 0.8 Eosinophils # (Auto) 0.2 0.2 Basophils # (Auto) 0.1 0.1 CBC Comment DIFF FINAL DIFF FINAL Differential Comment Prothrombin Time 11.4 Prothromb Time International 1.0 Ratio Sodium Level 138 141 Potassium Level 4.1 3.8 Chloride Level 105 110 Carbon Dioxide Level 19.3 21.7 Anion Gap 14 9 Blood Urea Nitrogen 34 24 Creatinine 1.05 0.81 Estimat Glomerular Filtration 49 67 Rate Random Glucose 187 163 Calcium Level 10.6 9.2 Troponin I LESS THAN 0.02 Urine Color YELLOW Urine Turbidity CLEAR Urine pH 5.0 Urine Specific Ray 1.019 Urine Protein 30 Urine Glucose (UA) NEG Urine Ketones NEG Urine Occult Blood NEG Urine Nitrite NEG Urine Bilirubin NEG Urine Urobilinogen LESS THAN 2.0 Urine Leukocyte Esterase NEG Urine RBC LESS THAN 1 Urine WBC 5 Urine Squamous Epithelial 1 Cells Microscopic Urinalysis Comment CATH-CULTURE IND Triglycerides Level 352 Cholesterol Level 178 LDL Cholesterol 66 HDL Cholesterol 41.3 Cholesterol/HDL Ratio 4.30 Date/Time Procedure Status Source Growth 01/26/17 19:25 Urine Culture Received Urine Catheterized Urine Pending (Molly Iglesias) Result Diagram: 01/27/17 0635 01/27/17 0635 Imaging Last Impressions Head CT 01/26/171650 Signed Impressions: Service Date/Time: Thursday, January 26, 2017 18:40 - CONCLUSION: Moderate severity ischemic atrophy and old lacunar infarcts in the left side. No acute findings. Oscar Baptiste MD Chest X-Ray 01/26/171650 Signed Impressions: Service Date/Time: Thursday, January 26, 2017 17:04 - CONCLUSION: No acute disease. Oscar Knutson Jr., MD Carotid Artery Ultrasound 01/26/17 0000 Signed Impressions: Service Date/Time: Thursday, January 26, 2017 22:04 - CONCLUSION: 1. Moderate plaque in the right carotid bulb with retrograde flow in the right internal carotid artery. There is normal flow in the common carotid artery with no evidence of occlusion. This is an unusual finding without occlusion in the common carotid artery. 2. Retrograde flow is also noted in the right vertebral artery. 3. Moderate plaque in the left internal carotid artery with less than 50%% diameter stenosis by velocity criteria. 4. Further evaluation with CT angiography is recommended. Bernard Hardy MD (Molly Iglesias) Assessment and Plan Problem List: (1) Right sided weakness (2) CVA (cerebral vascular accident) (3) Memory changes (4) Hyperlipidemia (5) Type 2 diabetes mellitus (6) Hypertension (7) hx normal pressure hydrocephalus Assessment and Plan Admit to Dr. Clifford 86-year-old elderly female with history of NPH, diabetes, hypertension. Presented with right-sided weakness. CT of the head shows old lacunar infarcts in the left side. CVA versus TIA Continue neuro checks -Bedrest Normal saline at 100 an hour -Neurology consultation MRI of the brain has been completed, we will follow up on results Carotid ultrasound has been completed, results are noted. No significant stenosis -D echo has been ordered Lipid profile is noted, continue with statins -Continue with aspirin We will order TSH, B12 and RPR PT, OT, ST have been ordered Renal insufficiency, dehydration Continue with IV fluids -Creatinine improved History of NPH and memory problems, had lumbar drain placed in 2016 Physical therapy has been ordered Type 2 diabetes Hemoglobin A1c Accu-Cheks before meals and at bedtime with insulin therapy Hypertension, stable Continue home medications Hyperlipidemia Continue home medication Chronic urinary incontinence Mild leukocytosis, positive urine culture -Follow urine cultures, we will not start antibiotics at this time. Continue oxybutynin Home medications reviewed, initiated as indicated Plan of care has been discussed with the patient, attending and registered nurse. Further management of the patient will be dependent on the hospital course This patient was seen by myself and Dr. Clifford, this H&P is written on his behalf (Molly Iglesias) Assessment and Plan Patient seen and examined as above Chart reviewed Daughter at the bedside discussed with daughter in detail Labs radiological surgical data and medications reviewed Discussed with RN Plan of care discussed with NOBLE Further testing is in progress (Larissa Clifford MD) Problem Qualifiers (1) CVA (cerebral vascular accident): Qualified Code: I63.9 - Cerebrovascular accident (CVA), unspecified mechanism (2) Hyperlipidemia: Qualified Code: E78.5 - Hyperlipidemia, unspecified hyperlipidemia type (3) Type 2 diabetes mellitus: Qualified Code: E11.59 - Type 2 diabetes mellitus with other circulatory complication, unspecified custodial insulin use status (4) Hypertension: Qualified Code: I10 - Essential hypertension Molly Iglesias Jan 27, 2017 09:07 Larissa Clifford MD Jan 27, 2017 10:59
--- NOTE | 2017-01-27 09:09 | RADRPT ---
EXAM DATE/TIME: 01/27/2017 07:47 [facility] COMPARISON: No previous studies available for comparison. INDICATIONS : Right sided weakness. CVA. MEDICAL HISTORY : Hypertension. Diabetes mellitus type 2. SURGICAL HISTORY : Total knee replacement, right. Total knee replacement, left. ENCOUNTER: Subsequent ACUITY: 4-6 days PAIN SCORE: 0/10 LOCATION: head. Please note a normal MRA of the brain does not entirely exclude the possibility of a small aneurysm, nor the possibility of distal intracranial vessel disease. TECHNIQUE: 3D time of flight MRA was performed. Source images, multiplanar STS MIP, and 3D volume MIP reconstru ctions were reviewed. FINDINGS: There is excellent visualization of the major intracranial arteries out to the second-order branch ve ssels. There is no evidence for aneurysm, vessel truncation or stenosis, and no evidence for vascula r malformation. CONCLUSION: 1. No hemodynamically significant stenosis identified. Mild atherosclerotic irregularity in the dista l internal carotid arteries and possibly in the distal middle cerebral arteries bilaterally. Anthony Suresh MD on January 27, 2017 at 8:59 Board Certified Radiologist. This report was verified electronically.
[2017-01-27] MEDS ORDERED: SODIUM CHLOR 0.9% 1000 ML INJ 1,000 ML IV SCH ×2 (10:26→11:30)
--- NOTE | 2017-01-27 10:58 | MB ---
cc: TARA LICONA M.D. DATE OF CONSULTATION 01/27/2017 REASON FOR CONSULTATION This is an 86-year-old left-handed woman with a history of hypertension, non-insulin dependent diabetes mellitus, hypercholesterolemia. She does not take an as an aspirin a day. About three days ago, she became weak on the right side. Her daughter noticed it and then eventually she came in the hospital. PAST MEDICAL HISTORY I actually saw her in September of this year. Memory loss for years, sees Dr. Long. Some enlarged ventricles, possible NPH. A lumbar drain was placed at that time. Protein was high in the CSF with some improvement after the lumbar drain was placed. 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 She was to follow up with Dr. Long as an outpatient. REVIEW OF SYSTEMS She denies any CABG, stent, angioplasty, A. fib, Coumadin, chest pain, palpitations, headache, renal, hepatic or pulmonary disease, thyroid disease, lupus, ulcer, cancer seizure or stroke. SOCIAL HISTORY She is not a smoker or a drinker. Lives by herself. FAMILY HISTORY Negative for cancer seizure, or stroke. ALLERGIES HYDROCODONE MEDICATIONS At home, she is on: 1. She does not take an Aspirin a day. She is, however, on a Statin at home. on the allergic to. 2. Methamphetamine 3. Eye drops 4. Crestor 5. Risperidone 0.5 b.i.d. 6. Amlodipine 7. Metformin 8. Oxybutynin 9. Valsartan 10. Thyroid medicine PHYSICAL EXAM She has been in sinus rhythm here, afebrile, 71, 18, 144/63. NECK: There were no carotid bruits. HEART: Regular rhythm. I did not detect a murmur. NEUROLOGIC: Pupils are equal. Visual chong are full. Extraocular movements intact without nystagmus. Face symmetric with normal sensation. Tongue was midline. There is a slight right drift. She had normal strength on the left upper and lower extremity. Right side, she is about a 5-/5 in the arm and leg. Toes are downgoing bilaterally. DTRs trace throughout. Pinprick is intact throughout. She is ataxia on [id number] on the right and a little bit on toe to finger on the right, not on the left. LABORATORY DATA MRI shows what appears to be an acute left lacunar infarct deep white matter. CBC is normal. Sed rate was normal back in 2016. RPR has been negative JAQUELINE has been negative in the past. UA has been negative. Basic metabolic profile is normal. Cholesterol was 178. LDL only 66. Methylmalonic acid was normal as was a thiamine level in September of this year. MRI of the brain as noted. MRA [place] possible mild disease intracranially. Carotid ultrasound some reversal on the right ICA. IMPRESSION Likely a lacunar infarct on the left. We will check an echocardiogram on her. I think just aspirin a day at this time is fine. We will treat her with 325. We will check a CTA of that right carotid and echocardiogram. She can take Fish Oil 1000 mg twice a day. I notified her daughter. We will see what the CTA shows. She could go to rehab if her CTA looks fine and the echo looks okay. Also check a Holter monitor. Acutely, I would treat her with 325 of aspirin a day and then she could down to a baby aspirin in a month's time as an outpatient. She should follow up with Dr. Long as an outpatient for her history of memory problems. MD MIA Oliver/ARMAAN /10:19 AM /10:42 AM
[2017-01-27] MEDS ORDERED: RESTASIS 0.05% EACH EYE SCH (12:00)
[2017-01-27] MEDS: risperiDONE 0.5 MG TAB PO SCH ×2 (12:00→21:11)
[2017-01-27] MEDS ORDERED: IOHEXOL 350 MG/ML 10 ML VIAL (for RAD DIAG) IV ONE (13:19)
[2017-01-27] MEDS: INSULIN ASPART SUPPLEMENTAL SCALE SQ SCH ×3 (13:38→21:12)
[2017-01-27] MEDS: LEVOTHYROXINE SODIUM 25 MCG TAB PO SCH (13:42)
[2017-01-27] MEDS: amLODIPine BESYLATE 5 MG TAB PO SCH (13:42)
[2017-01-27] MEDS: ATORVASTATIN 20 MG TAB PO SCH (13:42)
[2017-01-27] MEDS: VALSARTAN 80 MG TAB PO SCH (13:42)
[2017-01-27] MEDS ORDERED: ALPHAGAN P 0.1% EACH EYE SCH (14:00)
--- NOTE | 2017-01-27 14:07 | RADRPT ---
EXAM DATE/TIME: 01/27/2017 13:06 [facility] COMPARISON: No previous studies available for comparison. INDICATIONS : Right sided weakness. IV CONTRAST: 70 cc Omnipaque 350 (iohexol) IV RADIATION DOSE: 26.13 CTDIvol (mGy) MEDICAL HISTORY : Hypertension. Bladder stone SURGICAL HISTORY : Appendectomy. Lumbar drain. ENCOUNTER: Initial ACUITY: 4 - 6 days PAIN SCALE: 3/10 LOCATION: Right facial TECHNIQUE: Volumetric scanning was performed using a multi-row detector CT scanner. The data was post processed with a variety of visualization algorithms including full volume maximum intensity projection, multi -planar sliding thin slab reformation, curved planar reformation, and surface rendering techniques. Using automated exposure control and adjustment of the mA and/or kV according to patient size, radiat ion dose was kept as low as reasonably achievable to obtain optimal diagnostic quality images. DICO M format image data is available electronically for review and comparison. FINDINGS: There is excellent visualization of the major intracranial arteries out to the second-order branch ve ssels. There is no evidence for aneurysm, vessel truncation or stenosis, and no evidence for vascula r malformation. CONCLUSION: 1. Negative examination Cecil Rodriguez MD on January 27, 2017 at 14:04 Board Certified Radiologist. This report was verified electronically.
--- NOTE | 2017-01-27 14:43 | RADRPT ---
EXAM DATE/TIME: 01/27/2017 13:06 [facility] COMPARISON: No previous studies available for comparison. INDICATIONS : Right sided weakness. IV CONTRAST: 70 cc Omnipaque 350 (iohexol) IV RADIATION DOSE: 26.13 CTDIvol (mGy) MEDICAL HISTORY : Hypertension. Bladder stone. SURGICAL HISTORY : Appendectomy. Lumbar drain. ENCOUNTER: Initial ACUITY: 4 - 6 days PAIN SCALE: 3/10 LOCATION: Right facial Elevated flow velocities and ICA/CCA ratios have been found to correlate with increased degrees of vessel stenosis, calculated as percentage of diameter relative to a normal segment of distal ICA/CCA. TECHNIQUE: Volumetric scanning was performed using a multirow detector CT scanner. The data was post processed with a variety of visualization algorithms including full-volume maximum intensity projection, multip lanar sliding thin-slab reformation, curved-planar reformation, and surface-rendering techniques. Us ing automated exposure control and adjustment of the mA and/or kV according to patient size, radiatio n dose was kept as low as reasonably achievable to obtain optimal diagnostic quality images. DICOM f ormat image data is available electronically for review and comparison. FINDINGS: AORTIC ARCH: There is a three-vessel origin of the great vessels from the aorta. Calcified plaque generates a 40% stenosis involving the proximal left subclavian artery. This is proximal to the left vertebral artery origin. RIGHT CAROTID: Heavily calcified atherosclerotic plaque is seen involving the carotid bulb and proximal ICA. This ge nerates a 50% stenosis of the ICA origin. The more cephalad portion of the extracranial ICA is patent . The ECA is patent. The CCA is patent. LEFT CAROTID: Heavily calcified atherosclerotic plaque is seen involving the carotid bulb and proximal ICA. This ge nerates a 50% stenosis of the ICA origin. The more cephalad portion of the extracranial ICA is patent . The ECA is patent. The CCA is patent. VERTEBRALS: The vertebral arteries have a symmetric diameter. No stenotic lesions are seen. CONCLUSION: 1. Calcified plaque generating 50% stenoses of the ICA origins bilaterally. 2. 40% stenosis of the left subclavian artery. 3. 4. A tiny low-density nodule involving the right lobe of the thyroid. Oscar Knutson Jr., MD on January 27, 2017 at 14:24 Board Certified Radiologist. This report was verified electronically.
[2017-01-27] MEDS: TOLTERODINE TARTRATE 4 MG CAP LA PO SCH (14:44)
--- NOTE | 2017-01-27 15:04 | EKG ---
Date Performed: 01/26/2017 Time Performed: 17:10:19 PTAGE: 86 years EKG: Sinus rhythm MARKED LEFT AXIS DEVIATION VOLTAGE CRITERIA FOR LVH POSSIBLE ANTEROSEPTAL MYOCARDIAL INFARCTION ABNO RMAL ECG PREVIOUS TRACING : 09/24/2015 18.02 Since previous tracing, no significant change noted DOCTOR: Jacklyn Santos Interpretating Date/Time 01/27/2017 15:03:55
[2017-01-27] MEDS: ENOXAPARIN SODIUM 40 MG/0.4 ML SYRINGE SQ SCH (21:11)
[2017-01-28 02:57] VITALS: PULSE 70
[2017-01-28 04:04] VITALS: BP 161/78; PULSE 74; RESP 18; TEMP 98.7; O2SAT 97
[2017-01-28] MEDS: LEVOTHYROXINE SODIUM 25 MCG TAB PO SCH (05:57)
[2017-01-28] MEDS: INSULIN ASPART SUPPLEMENTAL SCALE SQ SCH ×2 (06:00→11:00)
[2017-01-28 07:00] VITALS: PULSE 71
--- NOTE | 2017-01-28 07:26 | HHI.PR ---
Subjective Remarks sr Objective Vital Signs Date Time Temp Pulse Resp B/P Pulse Ox O2 Delivery O2 Flow Rate FiO2 01/28/17 04:04 98.7 74 18 161/78 97 01/28/17 02:57 70 01/27/17 23:46 98.7 74 18 176/79 97 01/27/17 20:51 79 01/27/17 20:14 98.4 85 18 151/83 93 01/27/17 15:08 98.5 88 16 149/70 95 01/27/17 13:43 148/93 01/27/17 11:15 98.3 83 16 144/64 95 01/27/17 08:00 83 Result Diagram: 01/27/17 0635 01/27/17 0635 Objective Remarks awake alert ox3 rue 4+-5- rle 5/5 Assessment and Plan Assessment and Plan imp mri lacunar type cva asa and fish oil cta 50% bilat the left has some cca and ica dz more extensive but velocities nl on left i will do o/p mra neck for now if echo neg can dc to rehab fu Britton Rosario MD Jan 28, 2017 07:26
--- NOTE | 2017-01-28 07:48 | HHI.PR ---
Subjective Remarks awake, oriented x 2 no new neuro changes tele SR forgetful pleasant has no complaints Objective Objective Results - Vital Signs Date Time Temp Pulse Resp B/P Pulse Ox O2 Delivery O2 Flow Rate FiO2 01/28/17 04:04 98.7 74 18 161/78 97 01/28/17 02:57 70 01/27/17 23:46 98.7 74 18 176/79 97 01/27/17 20:51 79 01/27/17 20:14 98.4 85 18 151/83 93 01/27/17 15:08 98.5 88 16 149/70 95 01/27/17 13:43 148/93 01/27/17 11:15 98.3 83 16 144/64 95 01/27/17 08:00 83 Result Diagram: 01/27/17 0635 01/27/17 0635 Imaging Last Impressions Head CT 01/26/17 165 Signed Impressions: Service Date/Time: Thursday, January 26, 2017 18:40 - CONCLUSION: Moderate severity ischemic atrophy and old lacunar infarcts in the left side. No acute findings. Oscar Baptiste MD Chest X-Ray 01/26/171650 Signed Impressions: Service Date/Time: Thursday, January 26, 2017 17:04 - CONCLUSION: No acute disease. Oscar Knutson Jr., MD Carotid Artery Ultrasound 01/26/17 0000 Signed Impressions: Service Date/Time: Thursday, January 26, 2017 22:04 - CONCLUSION: 1. Moderate plaque in the right carotid bulb with retrograde flow in the right internal carotid artery. There is normal flow in the common carotid artery with no evidence of occlusion. This is an unusual finding without occlusion in the common carotid artery. 2. Retrograde flow is also noted in the right vertebral artery. 3. Moderate plaque in the left internal carotid artery with less than 50%% diameter stenosis by velocity criteria. 4. Further evaluation with CT angiography is recommended. Bernard Hardy MD Other Results Laboratory Tests Test 01/27/17 10:54 Vitamin B12 Level 1727 Thyroid Stimulating Hormone 2.630 3rd Gen Rapid Plasma Reagin NON-REACTIVE Date/Time Procedure Status Source Growth 01/26/17 19:25 Urine Culture - Preliminary Resulted Urine Catheterized Urine Gram Negative Inder ROS General: Other (12 point ros completed, negative except as noted above ) Physical Exam Physical Exam GENERAL: This is a well-nourished, well-developed patient, in no apparent distress. SKIN: No rashes, ecchymoses or lesions. Cool and dry. HEAD: Atraumatic. Normocephalic. No temporal or scalp tenderness. EYES: Pupils equal round and reactive. Extraocular motions intact. No scleral icterus. No injection or drainage. ENT: Nose without bleeding, purulent drainage or septal hematoma. Throat without erythema, tonsillar hypertrophy or exudate. Uvula midline. Airway patent. NECK: Trachea midline. No JVD or lymphadenopathy. Supple, nontender, no meningeal signs. CARDIOVASCULAR: Regular rate and rhythm without murmurs, gallops, or rubs. RESPIRATORY: Clear to auscultation. Breath sounds equal bilaterally. No wheezes , rales, or rhonchi. GASTROINTESTINAL: Abdomen soft, non-tender, nondistended. No hepato-splenomegaly , or palpable masses. No guarding. MUSCULOSKELETAL: Extremities without clubbing, cyanosis, or edema. No joint tenderness, effusion, or edema noted. No calf tenderness. Negative Homans sign bilaterally. NEUROLOGICAL: Awake, alert oriented to self and place. Not sure of the year. Follows simple commands. Slow to respond. Ataxia noted left upper extremity greater than right. Right leg distal weakness, 4 out of 5. Speech clear. Urinary Catheter: No Vascular Central Line Catheter: No A/P Diagnosis: (1) Right sided weakness (2) CVA (cerebral vascular accident) (3) Memory changes (4) Hyperlipidemia (5) Type 2 diabetes mellitus (6) Hypertension (7) hx normal pressure hydrocephalus Assessment and Plan 86-year-old elderly female with history of NPH, diabetes, hypertension. Presented with right-sided weakness. CT of the head shows old lacunar infarcts in the left side. CVA versus TIA Continue neuro checks -inc. activity, oob -DC IVF -Neurology input appreciated, work up completed. + Lacunar stroke, recommends ASA for now and OP f/u for neck MRA. Cleared for dc to CIR -Imaging studies reviewed, acute to subacute infarct to post. limb left internal capsule Neck CTA calcified plaque 50% stenosis if ICA, 40% left subclavian artery -D echo pending Lipid profile is noted, continue with statins -Continue with aspirin -Holter in place -TSH, RPR, B12 okay PT, OT, ST -stable, will have RN call to have echo done. Has holter in place. Cleared for dc by neurology Renal insufficiency, dehydration -stable, resolved History of NPH and memory problems, had lumbar drain placed in 2016 -continue with PT Type 2 diabetes Hemoglobin A1c Accu-Cheks before meals and at bedtime with insulin therapy Hypertension, stable Continue home medications Hyperlipidemia Continue home medication Chronic urinary incontinence Mild leukocytosis, positive urine culture-GNR, sens pending -Follow urine cultures, we will not start antibiotics at this time. Continue oxybutynin CM consult dc planning, accepted at [facility] plan to dc today to [facility] F/U neurology diet -heart healthy activity-as tolerated D/W RN D/W Dr. Clifford D/W pt This patient was seen by myself and Dr. Clifford, this note is written on his behalf Discharge Planning 45 Problem Qualifiers (1) CVA (cerebral vascular accident): Qualified Code: I63.9 - Cerebrovascular accident (CVA), unspecified mechanism (2) Hyperlipidemia: Qualified Code: E78.5 - Hyperlipidemia, unspecified hyperlipidemia type (3) Type 2 diabetes mellitus: (4) Hypertension: Qualified Code: I10 - Essential hypertension Molly Iglesias Jan 28, 2017 07:48
[2017-01-28] MEDS ORDERED: ASPI81CH25 PO (07:49)
--- NOTE | 2017-01-28 07:49 | HHI.DCPOC ---
Discharge Care Plan Diagnosis: (1) CVA (cerebral vascular accident) Your Health Problems Are: Difficulty with ADL Goals to Promote Your Health * To prevent worsening of your condition and complications * To maintain your health at the optimal level Directions to Meet Your Goals Take your medications as prescribed Follow your dietary instruction Follow activity as directed Keep your appointments as scheduled Take your immunizations and boosters as scheduled If your symptoms worsen call your PCP, if no PCP go to Urgent Care Center or Emergency Room Smoking is Dangerous to Your Health. Avoid second hand smoke Call the 24-hour hour crisis hotline for domestic abuse at Molly Iglesias. [facility] Jan 28, 2017 07:49
[2017-01-28] MEDS: amLODIPine BESYLATE 5 MG TAB PO SCH (08:06)
[2017-01-28] MEDS: VALSARTAN 80 MG TAB PO SCH (08:06)
[2017-01-28] MEDS: ATORVASTATIN 20 MG TAB PO SCH (08:06)
[2017-01-28] MEDS: TOLTERODINE TARTRATE 4 MG CAP LA PO SCH (08:07)
[2017-01-28] MEDS: ASPIRIN 81 MG CHEW TAB PO SCH (08:07)
[2017-01-28] MEDS: FAMOTIDINE 20 MG TAB PO SCH (08:07)
[2017-01-28] MEDS: risperiDONE 0.5 MG TAB PO SCH (08:07)
[2017-01-28 08:23] VITALS: BP 165/76; PULSE 80; RESP 16; TEMP 97.8; O2SAT 94
--- NOTE | 2017-01-28 09:04 | HHI.DS ---
Discharge Summary Admission Date Jan 26, 2017 at 21:19 Discharge Date: Jan 28, 2017 Admitting Diagnosis CVA (1) Right sided weakness (2) CVA (cerebral vascular accident) (3) Memory changes (4) Hyperlipidemia (5) Type 2 diabetes mellitus (6) Hypertension (7) hx normal pressure hydrocephalus CBC/BMP: 01/27/17 0635 01/27/17 0635 Significant Findings Laboratory Tests Test 01/26/17 01/26/17 01/27/17 01/27/17 18:00 19:25 06:35 10:54 Carbon Dioxide Level 19.3 MEQ/L (21.0-32.0) Blood Urea Nitrogen 34 MG/DL (7-18) 24 MG/DL (7-18) Creatinine 1.05 MG/DL (0.50-1.00) Estimat Glomerular Filtration 49 ML/MIN (>89) 67 ML/MIN (>89) Rate Random Glucose 187 MG/DL 163 MG/DL (74-106) (74-106) Calcium Level 10.6 MG/DL (8.5-10.1) Troponin I LESS THAN 0.02 NG/ML (0.02-0.05) White Blood Count 11.9 TH/MM3 (4.0-11.0) Monocytes (%) (Auto) 8.6 % (0.0-8.0) 9.1 % (0.0-8.0) Monocytes # (Auto) 1.0 TH/MM3 (0-0.9) Urine Protein 30 mg/dL (NEG-TRACE) Chloride Level 110 MEQ/L (98-107) Triglycerides Level 352 MG/DL (42-150) Vitamin B12 Level 1727 PG/ML (193-986) Imaging Last Impressions Neck CTA 01/27/17 1007 Signed Impressions: Service Date/Time: January 13:06 - CONCLUSION: 1. Calcified plaque generating 50%% stenoses of the ICA origins bilaterally. 2. 40%% stenosis of the left subclavian artery. 3. 4. A tiny low-density nodule involving the right lobe of the thyroid. Oscar Knutson Jr., MD Head CTA 01/27/17 1007 Signed Impressions: Service Date/Time: January 13:06 - CONCLUSION: 1. Negative examination Cecil Rodriguez MD Head Magnetic Resonance Angiography 01/27/17 0000 Signed Impressions: Service Date/Time: January 07:47 - CONCLUSION: 1. No hemodynamically significant stenosis identified. Mild atherosclerotic irregularity in the distal internal carotid arteries and possibly in the distal middle cerebral arteries bilaterally. Anthony Suresh MD Brain MRI 01/27/17 0000 Signed Impressions: Service Date/Time: January 07:47 - CONCLUSION: 1. Subcentimeter acute to subacute infarct in the posterior limb left internal capsule. No other acute infarctions. 2. Stable chronic moderate ischemic changes in the periventricular white matter. Anthony Suresh MD Head CT 01/26/171650 Signed Impressions: Service Date/Time: Thursday, January 26, 2017 18:40 - CONCLUSION: Moderate severity ischemic atrophy and old lacunar infarcts in the left side. No acute findings. Oscar Baptiste MD Chest X-Ray 01/26/171650 Signed Impressions: Service Date/Time: Thursday, January 26, 2017 17:04 - CONCLUSION: No acute disease. Oscar Knutson Jr., MD Carotid Artery Ultrasound 01/26/17 0000 Signed Impressions: Service Date/Time: Thursday, January 26, 2017 22:04 - CONCLUSION: 1. Moderate plaque in the right carotid bulb with retrograde flow in the right internal carotid artery. There is normal flow in the common carotid artery with no evidence of occlusion. This is an unusual finding without occlusion in the common carotid artery. 2. Retrograde flow is also noted in the right vertebral artery. 3. Moderate plaque in the left internal carotid artery with less than 50%% diameter stenosis by velocity criteria. 4. Further evaluation with CT angiography is recommended. Bernard Hardy MD Hospital Course This a pleasant 86-year-old elderly white female with history of NPH and prior lumbar drain, memory deficits, urinary incontinence, hypertension, hyperlipidemia, type 2 diabetes. Patient presented to the emergency room via EMS for reported right-sided weakness for the last 2-3 days. Patient is a poor historian, she has a general idea why she is here but cannot provide detailed medical information. Believed symptoms have been ongoing for a few months. Daughter is not at bedside. Per review of the record, patient has been noted having difficulty walking and holding objects. Patient indicates that she has to hold onto things to ambulate. She was last seen at this facility in 2016 when she was admitted after having a lumbar drain placed for NPH. At that time she was noted to have gait difficulty and memory problems. Patient denied any headaches, no double vision. Did complain of mild paresthesias to the right upper and lower extremity. She she was forgetful, somewhat slow to respond and required frequent cues to complete tasks. She had no other complaints, no chest pain, no shortness of breath. She does have chronic urinary incontinence. Denied any recent fever, no chills. In the emergency room, patient was evaluated, laboratory workup was completed. She was noted with some degree of dehydration, BUN of 34, creatinine 1.05. Carbon dioxide 19.3. Calcium 10.6, it is down to 9.2 today. Random glucose 187. Mild leukocytosis, WBC 11.9. Urine culture was pending. CT of the head showed moderate severity ischemic atrophy and old lacunar infarcts in the left side, no acute findings. Patient had previous imaging studies in 2016 that did not reveal any strokes. Patient was not aware and did not have any prior history. Patient was given aspirin. Patient was admitted for further evaluation and treatment. (1) Right sided weakness (2) CVA (cerebral vascular accident) (3) Memory changes (4) Hyperlipidemia (5) Type 2 diabetes mellitus (6) Hypertension (7) hx normal pressure hydrocephalus During the course of the hospitalization, the following took place: 86-year-old elderly female with history of NPH, diabetes, hypertension. Presented with right-sided weakness. CT of the head shows old lacunar infarcts in the left side. Pt. found positive with lacunar infarct. checked neuro checks -initially put on bedrest with NS at 75/hr -Neurology input appreciated, work up completed. + Lacunar stroke, recommended ASA for now and OP f/u for neck MRA. Cleared for dc to CIR -Imaging studies reviewed, acute to subacute infarct to post. limb left internal capsule Neck CTA calcified plaque 50% stenosis if ICA, 40% left subclavian artery -2D echo ok Lipid profile is noted, continued with statins -Continued with aspirin -Holter in place -result to be f/u as OP -TSH, RPR, B12 okay PT, OT, ST ordered -pt. stable, no further neuro changes. Did well with therapies. Rehab recommended -Cleared for dc by neurology Renal insufficiency, dehydration -stable, resolved after IVF History of NPH and memory problems, had lumbar drain placed in 2016 -continued with PT Type 2 diabetes Hemoglobin A1c 8 Accu-Cheks before meals and at bedtime with insulin therapy Hypertension, stable Continued home medications Hyperlipidemia Continued home medication Chronic urinary incontinence Mild leukocytosis, positive urine culture-GNR, sens pending -Followed urine cultures, no abx started. CIR to f/u cultures. Continue oxybutynin CM consult dc planning, accepted at [facility] Discharged to [facility] in stable condition. F/U neurology diet -heart healthy activity-as tolerated Pt Condition on Discharge: Stable Discharge Disposition: Rehab Inpatient Discharge Instructions DIET: Follow Instructions for: Heart Healthy Diet Activities you can perform: Weight Bearing as Mesha Follow up Referrals: Neurology PCP Follow-up New Medications: Aspirin (Aspirin Low Strength) 81 Mg Chew 162 MG PO DAILY Stroke Prevention #30 EA Continued Medications: Amlodipine (Amlodipine) 5 Mg Tab 5 MG PO DAILY Blood Pressure Management #30 Ref 0 TAB Brimonidine Opth Drops (Alphagan P Opth Drops) 0.1% Soln 1 DROP EACH EYE Q8HR Intraocular pressure #1 Ref 0 BOTTLE Cyclosporine Opth 0.05% (Restasis Opth 0.05%) 0.05% Emul 1 DROP EACH EYE BID Dry Eye #1 Ref 0 BOX Dorzolamide Opth Drops (Dorzolamide Opth Drops) 2% Soln 1 DROP EACH EYE Glaucoma #1 Ref 0 BOTTLE Levothyroxine (Levothyroxine) 25 Mcg Tab 25 MCG PO DAILY Thyroid #30 Ref 0 TAB Metformin (Metformin) 500 Mg Tab 500 MG PO BIDPC With meals Blood Sugar Management #60 Ref 0 TAB Methenamine Hippurate (Methenamine Hippurate) 1 Gm Tab 500 MG PO BID Infection Ref 0 TAB Oxybutynin ER 24 HR (Oxybutynin ER 24 HR) 10 Mg Tab 10 MG PO DAILY Overactive Bladder Ref 0 TAB Risperidone (Risperidone) 0.5 Mg Tab 0.5 MG PO BID #30 Ref 0 TAB Rosuvastatin (Crestor) 10 Mg Tab 10 MG PO DAILY Cholesterol Management #30 Ref 0 TAB Valsartan (Valsartan) 80 Mg Tab 80 MG PO DAILY #30 Ref 0 TAB Molly Iglesias Jan 28, 2017 09:04
[2017-01-28 11:37] VITALS: BP 142/69; PULSE 94; RESP 16; TEMP 98; O2SAT 94
[2017-01-28 16:10] LABS: HEMOGLOBIN A1b 2.6 %; HEMOGLOBIN Ao 80.3 %; HEMOGLOBIN LA1C 2.5 %; HEMOGLOBIN P3 4.9 %
--- NOTE | 2017-01-28 18:52 | ECHRPT ---
Indication: Transient cerebral ischemic attack, unspecified CONCLUSIONS The left ventricular systolic function is normal with an estimated ejection fraction in the range of 60-65%. Mild concentric left ventricular hypertrophy. Doppler parameters are consistent with impaired left ventricular relaxtion (grade 1 diastolic dysfun ction). Trace mitral valve regurgitation. Mild aortic valve stenosis. BP: 144 / 63 HR: 71 Rhythm: MEASUREMENTS (Male / Female) Normal Values Technical Quality: 2D ECHO LV Diastolic Diameter PLAX 3.0 cm 4.2 - 5.9 / 3.9 - 5.3 cm LV Systolic Diameter PLAX 2.2 cm IVS Diastolic Thickness 1.4 cm 0.6 - 1.0 / 0.6 - 0.9 cm LVPW Diastolic Thickness 1.1 cm 0.6 - 1.0 / 0.6 - 0.9 cm LV Relative Wall Thickness 0.8 RV Internal Dim ED PLAX 2.2 cm LVOT Diameter 1.9 cm M-MODE Aortic Root Diameter MM 2.8 cm LA Systolic Diameter MM 3.1 cm LA Ao Ratio MM 1.1 AV Cusp Separation MM 1.4 cm DOPPLER AV Peak Velocity 190.0 cm/s AV Peak Gradient 14.4 mmHg AV Mean Gradient 8.0 mmHg AV Velocity Time Integral 40.8 cm LVOT Peak Velocity 94.7 cm/s LVOT Peak Gradient 3.6 mmHg LVOT Velocity Time Integral 30.3 cm LVOT Cardiac Index 3130.3 cm/minm AV Area Cont Eq vti 2.1 cm AV Area Cont Eq pk 1.4 cm MV Peak Velocity 133.0 cm/s MV Peak Gradient 7.1 mmHg MV Mean Velocity 67.9 cm/s MV Mean Gradient 2.0 mmHg Mitral E Point Velocity 76.9 cm/s Mitral A Point Velocity 142.0 cm/s Mitral E to A Ratio 0.5 LV E' Lateral Velocity 4.6 cm/s Mitral E to LV E' Lateral Ratio 16.8 FINDINGS LEFT VENTRICLE Mild concentric left ventricular hypertrophy. The left ventricular systolic function is normal with an estimated ejection fraction in the range of 60-65%. Doppler parameters are consistent with impaired left ventricular relaxtion (grade 1 diastolic dysfun ction). RIGHT VENTRICLE Normal right ventricular size and systolic function. LEFT ATRIUM The left atrial size is normal. RIGHT ATRIUM The right atrial size is normal. ATRIAL SEPTUM The interatrial septum not well visualized. AORTA The aortic root and proximal ascending aorta are normal in size on limited imaging. MITRAL VALVE Structurally normal mitral valve. Trace mitral valve regurgitation. No mitral valve stenosis. AORTIC VALVE Trileaflet aortic valve. No aortic valve regurgitation. Diffuse calcification of the aortic valve. Mild aortic valve stenosis. TRICUSPID VALVE Structurally normal tricuspid valve. No tricuspid valve stenosis or regurgitation. PULMONARY VALVE The pulmonary valve is not well visualized. trace regurgitation VESSELS The inferior vena cava is normal in size. PERICARDIUM No pericardial effusion. Tree Nevarez DO (Electronically Signed) Final Date:28 January 2017 18:51
--- NOTE | 2017-01-29 13:44 | HM ---
Date Performed: 01/27/2017 Time Performed: 21:58:00 HOOKUP DATE: 01/27/17 09:58:00 PM Colleen ANALYSIS START TIME: 01/27/2017 10:03:00 PM ANALYSIS END TIME: 01/28/2017 1:19:42 PM PATIENT AGE: 86 PATIENT HEIGHT: 66 PATIENT WEIGHT: 176 DRUG LIST PATIENT DIAGNOSIS: CVA TEST NARRATIVE: The patient's average heart rate was 78 BPM. Heart rates greater than 120 B PM were noted 1% of the time. No episodes of bradycardia were noted. No pauses exceeding 2.0 sec onds were noted. 51 ventricular ectopics, which represented < 1% of the total beat count, were no genie. The highest ventricular ectopic frequency occurred from 11:00 AM to 12:00 PM Fri. During this time 11 VE(s) occurred. Ventricular ectopics were observed as 51 isolated beat(s) only. No couplets or runs were noted. 20 supraventricular ectopics, which represented < 1% of the total beat count , were noted. The highest supraventricular ectopic frequency occurred from 10:00 PM to 11:00 PM Colleen. During this time 5 SVE(s) occurred. No episodes of ST depression (defined as -1.0 mm or more) w ere noted in channel 1. No episodes of ST depression (defined as -1.0 mm or more) were noted in moise ori 2. No episodes of ST depression (defined as -1.0 mm or more) were noted in channel 3. TEST INTERPRETATION: The patient was monitored for 15 hours, 17 minutes. The minimum heart rate was 57 bpm and the maximum heart rate was 133 bpm. The average heart rate was 78 bpm. The underlyi ng rhythm was normal sinus with occasional PACs and PVCs. There were short runs of PACs with the truman gest being 4 beats. CONCLUSION: PACs and PVCs Short runs of PACs No atrial fibrillation seen Signed by : Cortes Baig
[2017-02-11] MEDS ORDERED: BLOOD GLUCOSE T1 TES (10:12)
[2017-02-15] MEDS ORDERED: WHEEMIS3 (08:40)
[2017-02-15] MEDS ORDERED: COMMODE 3-IN-11 MIS (08:40)
[2017-02-15] MEDS ORDERED: LEVO25TA4 PO (12:33)
[2017-02-15] MEDS ORDERED: METF500T PO (12:33)
[2017-02-15] MEDS ORDERED: DORZ2SOL EACH EYE (12:33)
[2017-02-15] MEDS ORDERED: REST0.05 EACH EYE (12:33)
[2017-02-15] MEDS ORDERED: ROSU10 PO (12:33)
[2017-02-15] MEDS ORDERED: ASPI81CH25 PO (12:34)
[2017-02-15] MEDS ORDERED: DIOV40TA PO (12:34)
[2017-02-15] MEDS ORDERED: METH1TAB2 PO (12:34)
[2017-02-15] MEDS ORDERED: METO25TA3 PO (12:34)
[2017-02-15] MEDS ORDERED: DETR4CAP PO (12:34)
[2017-02-15] MEDS ORDERED: AMLO10 PO (12:34)
[2017-02-15] MEDS ORDERED: GNP5TAB6 PO (12:34)
[2017-02-15] MEDS ORDERED: FAMO20TA2 PO (12:34)
[2017-02-15] MEDS ORDERED: ALPH0.1S EACH EYE (12:34)
== END 2017-01-28 13:37 ==
LOC: NEPE 16:14 → NEDA 21:19 → INTOOBSV 21:19 → NEPHCDU 23:19
PROVIDERS: ADMIT Specialist; ATTEND Specialist
DX: I63.9 Cerebral infarction, unspecified (principal); I10 Essential (primary) hypertension; E11.8 Type 2 diabetes mellitus with unspecified complications; R09.02 Hypoxemia; G81.91 Hemiplegia, unspecified affecting right dominant side; E86.0 Dehydration; R32 Unspecified urinary incontinence; D72.829 Elevated white blood cell count, unspecified; N28.9 Disorder of kidney and ureter, unspecified; M19.90 Unspecified osteoarthritis, unspecified site; Z79.84 Long term (current) use of oral hypoglycemic drugs; Z79.899 Other long term (current) drug therapy; N39.0 Urinary tract infection, site not specified; B96.20 Unspecified Escherichia coli [E. coli] as the cause of diseases classified elsewhere; R94.31 Abnormal electrocardiogram [ECG] [EKG]
CPT/HCPCS: 70450; 71010; 80048; 81001; 84484; 85025; 85610; 87077; 87086; 87186; 93005; 93880; 96360; 96361; 96372; 99285; G0378; J1650; J7030; J7040; 70496; 70498; 70544; 70551; 76937; 80061; 82607; 82948; 83036; 84443; 86592; 93225; 93226; 93306; G8987-GO; G8987-GP; G8988-GO; G8988-GP; G8996-GN; G8997-GN; G8998-GN; J1815; Q9967